=== PATIENT | male | born 1980 | race Caucasian/White ===

== ENCOUNTER 2017-08-12 23:33 | Emergency (ER) | payer OTHER ==
[~2017-08-12] VITALS: Ht 172.7 cm; Wt 86.6 kg
[~2017-08-12 23:33] MED LIST: OXYCODONE HCL10 MG PO
[2017-08-13] MEDS ORDERED: NARCAN4 MG NS (04:16)
[2017-08-13 04:36] VITALS: BP 122/78
== END 2017-08-13 04:38 | disposition home or self-care (01) ==
LOC: EME 23:33
DX: T40.601A Poisoning by unspecified narcotics, accidental (unintentional), initial encounter (principal); Z87.891 Personal history of nicotine dependence
CPT/HCPCS: 71020; 93005; 99281; 99284; J2310; J2405